=== PATIENT | female | born 1960 | race Caucasian/White ===

== ENCOUNTER 2017-06-14 05:54 | Day surgery (SDC) | payer OTHER ==
[~2017-06-14] VITALS: Ht 157.5 cm; Wt 78.2 kg
[2017-06-14 06:59] VITALS: Ht 157.5 cm; Wt 78.2 kg
[2017-06-14] MEDS ORDERED: OMEGA (07:09)
[2017-06-14] MEDS ORDERED: VITAMINS DAILY (07:09)
[2017-06-14] MEDS ORDERED: OMEPRAZOLE DAILY (07:09)
[2017-06-14 07:27] VITALS: BP 127/75; PULSE 60; RESP 16
[2017-06-14] MEDS ORDERED: MIDAZOLAM 1 MG/ML 2 ML INJ ONE (07:36)
[2017-06-14] MEDS ORDERED: LIDOCAINE 2% (SDV) 5 ML INJ ONE (07:36)
[2017-06-14] MEDS ORDERED: PROPOFOL 20 ML ONE (07:36)
[2017-06-14] MEDS ORDERED: ALBUTEROL 0.083% (NEB) 2.5 MG/3 ML AMP ONE (07:37)
[2017-06-14] MEDS ORDERED: PROPOFOL 40 ML ONE (07:42)
--- NOTE | 2017-06-14 08:04 | OPPN ---
Date/Time of Note Date/Time of Note DATE: 06/14/17 TIME: 08:03 Operative Report Preoperative Diagnosis Chronic heartburn Postoperative Diagnosis Small hiatal hernia Gastroesophageal reflux disease Gastritis with erosions Operation/Procedure Performed Esophagogastroduodenoscopy and biopsy Provider: MEI LINK MD Anesthesia Type: MAC Transfusion Required: no Specimens Gastric mucosal biopsy Grafts/Implants: none Complications: no MEI LINK MD Jun 14, 2017 08:04
[2017-06-14 08:43] VITALS: BP 137/68; PULSE 68; RESP 18
--- NOTE | 2017-06-14 09:54 | GILP ---
DATE OF PROCEDURE: 06/14/2017 PROCEDURE PERFORMED: Esophagogastroduodenoscopy and biopsy. SURGEON: Aldair Frias MD. PREOPERATIVE DIAGNOSIS: Chronic heartburn. POSTOPERATIVE DIAGNOSES: 1. Small hiatal hernia. 2. Gastroesophageal reflux disease. 3. Gastritis with erosions. 4. Gastric mucosal biopsies were taken for Helicobacter pylori test. INDICATION: Ms. Mag Wu is a 56-year-old female patient who has chronic heartburn not responding to therapy. The patient was scheduled for endoscopic examination for further evaluation. The procedure and possible complications were well explained to the patient. She understood and consented to the procedure. PROCEDURE: Under the influence of anesthesia, the gastroscope was carefully introduced into the esophagus. Under direct vision, it was advanced to the stomach, into the pylorus, into the duodenal bulb, and descending duodenum. FINDINGS: Esophagus: The patient had a small hiatal hernia and gastroesophageal reflux disease. Stomach: She had gastritis with erosions. Gastric mucosal biopsies were taken for H pylori test. Duodenum was normal. She tolerated the procedure very well, and there was no complication from the procedure. At the end of procedure, she was awake with stable vital signs and she was discharged home in the care of her family. IMPRESSION: Please see postop diagnoses. PLAN: 1. Continue omeprazole. 2. Add Zantac 300 mg p.o. at bedtime. 3. Await H pylori test report. Dictated By: MD ANA LUISA Robledo/juan/ijeoma /Document#: [id number]
== END 2017-06-14 09:01 | disposition home or self-care (01) ==
LOC: GIL 05:54
PROVIDERS: ATTEND Internal Medicine Gastroenterology
DX: K44.9 Diaphragmatic hernia without obstruction or gangrene (principal); K21.9 Gastro-esophageal reflux disease without esophagitis; K29.60 Other gastritis without bleeding; E11.9 Type 2 diabetes mellitus without complications; E66.9 Obesity, unspecified; Z68.31 Body mass index [BMI] 31.0-31.9, adult
CPT/HCPCS: 43239; 87081; J2250; Z7610